=== PATIENT | male | born 1970 ===

== ENCOUNTER 2017-03-29 07:36 | Emergency (ER) | payer BC ==
[2017-03-29 08:11] VITALS: RESP 20
--- NOTE | 2017-03-29 08:36 | C.PDOC ---
History Of Present Illness 46-year-old male, presents to the emergency department with complaints of feeling depressed and lonely around 01:00 this morning. Patient states the police was called from him phone (but not by him), who showed up to his home this morning and brought him to ED for psych evaluation. Denies HI/SI. Patient admits to a Hx of depression after loosing a daughter 20 yrs ago. Time Seen by Provider: 03/29/17 07:56 Chief Complaint (Nursing): Psychiatric Evaluation History Per: Patient History/Exam Limitations: no limitations Past Medical History Reviewed: Historical Data, Nursing Documentation, Vital Signs Vital Signs: Last Vital Signs Temp 98.1 F 03/29/17 09:23 Pulse 86 03/29/17 09:23 Resp 20 03/29/17 09:23 BP 148/78 03/29/17 09:23 Pulse Ox 98 03/29/17 13:58 - Medical History PMH: Anxiety, Depression, HTN Denies: Diabetes, Hepatitis, HIV, Seizures, Sexually Transmitted Disease Surgical History: Cholecystectomy Family History: States: No Known Family Hx - Social History Hx Alcohol Use: Yes Hx Substance Use: No Review Of Systems Except As Marked, All Systems Reviewed And Found Negative. Constitutional: Negative for: Fever Cardiovascular: Negative for: Chest Pain, Palpitations Respiratory: Negative for: Shortness of Breath Gastrointestinal: Negative for: Nausea, Vomiting Psych: Positive for: Depression. Negative for: Suicidal ideation Physical Exam - Physical Exam Appears: Non-toxic, No Acute Distress Skin: Warm, Dry, No Rash Nose: Normal Lips: Normal Appearing Neck: Normal ROM Cardiovascular: Rhythm Regular Respiratory: No Accessory Muscle Use Gastrointestinal/Abdominal: Normal Exam Extremity: Normal ROM Neurological/Psych: Oriented x3 ED Course And Treatment O2 Sat by Pulse Oximetry: 98 Pulse Ox Interpretation: Normal Medical Decision Making Medical Decision Making: Patient evaluated by post tensioning ironworker helper Srinivasa, who states that patient is refusing to be seen by crisis. Pt denies suicidal or homicidal ideations. He wants the phone number/details to f/u in [facility]. Patient wants to leave AMA. This patient is choosing to leave against medical advice. I have personally explained to the patient that choosing to do so may result in permanent bodily harm or . I have discussed at great length that without further evaluation and monitoring there may be unforeseen circumstances and/or deterioration causing permanent bodily harm or as a result of their choice. The patient verbalized these risks back to me in laymans terms. The patient is alert, oriented, and shows the mental capacity to make clear decisions regarding the patients health care at this time. The patient continues to wish to leave against medical advice. In light of the patients decision to leave AMA, follow-up has been arranged and the patient is aware of the importance of following up as instructed. The patient has been advised that they should return to the ED immediately if they change their mind at any time, or if their condition begins to change or worsen in any way. Disposition Counseled Patient/Family Regarding: Diagnosis, Need For Followup - Disposition Referrals: [facility] [Outside] [facility] [Outside] [facility] [Outside] Disposition: AGAINST MEDICAL ADVICE Disposition Time: 08:37 Condition: STABLE Additional Instructions: YOU DECLINED EVALUATION OF DEPRESSION. FOLLOW UP WITH YOUR PMD/CLINIC AND [facility] [phone]. IF ANY CONCERNING SYMPTOMS DEVELOP RETURN TO ED. Instructions: Depression (ED) Forms: General Discharge Instructions - Clinical Impression Clinical Impression: Depression - Scribe Statement The provider has reviewed the documentation as recorded by the Toriibnahomi Almaraz All medical record entries made by the Alicia were at my direction and personally dictated by me. I have reviewed the chart and agree that the record accurately reflects my personal performance of the history, physical exam, medical decision making, and the department course for this patient. I have also personally directed, reviewed, and agree with the discharge instructions and disposition.
[2017-03-29 09:25] VITALS: BP 148/78; PULSE 86; TEMP 98.1
[2017-03-29 13:58] VITALS: O2SAT 98
== END 2017-03-29 09:26 | disposition left against medical advice (07) ==
LOC: C.ER 07:36
DX: F32.9 Major depressive disorder, single episode, unspecified (principal)